=== PATIENT | male | born 1990 | race Caucasian/White ===

== ENCOUNTER 2019-05-24 10:24 | Emergency (ER) | payer OTHER ==
[~2019-05-24] VITALS: Ht 180.3 cm; Wt 71.2 kg
[2019-05-24 11:13] VITALS: BP 122/77
[2019-05-24] MEDS ORDERED: LAMO50TA3 PO (11:17)
[2019-05-24] MEDS ORDERED: CITA40TA5 PO (11:17)
[2019-05-24 11:43] LABS: BASOPHILS # (AUTO) 0.03 x10^3/uL (0-0.1); BASOPHILS % (AUTO) 0 % (0-1); EOSINOPHILS # (AUTO) 0.04 x10^3/uL (0-0.4); EOSINOPHILS % (AUTO) 1 % (1-7); LYMPHOCYTES % (AUTO) 18 % (22-44); MD NO; MEAN CORPUSCULAR HEMOGLOBIN 31.1 pg (27.5-34.5); MEAN CORPUSCULAR HGB CONC 33.8 g/dL (33.2-36.2); MEAN CORPUSCULAR VOLUME 91.9 fL (81-97); MEAN PLATELET VOLUME 7.8 fL (7.4-10.4); MONOCYTES # (AUTO) 0.61 x10^3/uL (0.2-0.8); MONOCYTES % (AUTO) 7 % (2-9); NEUTROPHILS # (AUTO) 6.35 x10^3/uL (1.8-6.8); NEUTROPHILS % (AUTO) 74 % (42-75); PLATELET COUNT 249 x10^3/uL (130-400); RED BLOOD COUNT 4.94 x10^6/uL (4.38-5.82); RED CELL DISTRIBUTION WIDTH 12.6 % (9.4-14.8)
[2019-05-24 11:46] LABS: AMPHETAMINE SCREEN, URINE Negative (Negative); BARBITURATE SCREEN, URINE Negative (Negative); BENZODIAZEPINE SCREEN, URINE Negative (Negative); CANNABINOID SCREEN, URINE Positive (Negative); COCAINE SCREEN, URINE Negative (Negative); METHADONE SCREEN, URINE Negative (Negative); OPIATE SCREEN, URINE Negative (Negative)
--- NOTE | 2019-05-24 11:53 | NUR ---
RECEIVED REPORT FROM SHWETA MANNING. ASSUMING CARE AT THIS TIME. PT RESTING COMFORTABLY ON GURNEY. RENATO. PT IN DIRECT LINE OF SITE OF SITTER.
[2019-05-24 11:54] LABS: ALBUMIN 4.2 g/dL (3.4-5.0); ANION GAP 6 mmol/L (5-15); CALCIUM 9.1 mg/dL (8.5-10.1); CHLORIDE 108 mmol/L (98-107); CREATININE 1.09 mg/dL (0.7-1.3)
[2019-05-24 12:00] LABS: SALICYLATE LEVEL < 1.7 mg/dL (2.8-20.0)
--- NOTE | 2019-05-24 13:15 | NUR ---
PT RESTING ON ABDOULAYE. RENATO. PT IN DIRECT SITE OF SITTER.
--- NOTE | 2019-05-24 14:06 | NUR ---
PT RESTING COMFORTABLY ON HARRYRJANNETTE. RENATO. PT IN DIRECT SITE OF SITTER.
--- NOTE | 2019-05-24 14:09 | NUR ---
PACKET FAXED TO [facility], [facility] AND [facility]
--- NOTE | 2019-05-24 14:30 | NUR ---
JAN GIVEN TO DEXTER AT [facility].
--- NOTE | 2019-05-24 15:15 | NUR ---
[facility] HERE TO TAKE PT TO [facility]. 1 BAG PT BELONGINGS RETURNED. PT AMBULATED TO AMBULANCE WITH STEADY GAIT.
== END 2019-05-24 15:17 ==
LOC: ED 11:46
DX: F33.9 Major depressive disorder, recurrent, unspecified (principal); R45.851 Suicidal ideations
CPT/HCPCS: 36415; 80048; 80307; 82040; 85025; 99285